=== PATIENT | female | born 1975 | race Caucasian/White ===

== ENCOUNTER 2017-03-27 18:45 | Emergency (ER) | payer MEDICAID ==
[~2017-03-27] VITALS: Ht 149.9 cm; Wt 76.8 kg
[2017-03-27] MEDS ORDERED: ONDANSETRON 2MG/ML, 2ML IVPush ONE (19:30)
[2017-03-27] MEDS ORDERED: SODIUM CHLORIDE 0.9% 1,000ML IVBOLUS ONE (19:30)
[2017-03-27] MEDS ORDERED: ONDANSETRON 2MG/ML, 2ML ONE (19:31)
[2017-03-27] MEDS ORDERED: HYDROmorphone 2 MG/ML, 1ML ONE (19:31)
[2017-03-27 19:41] LABS: BASOPHILS # (AUTO) 0.21 x10^3/uL (0-0.1); BASOPHILS % (AUTO) 2 % (0-1); EOSINOPHILS # (AUTO) 0.05 x10^3/uL (0-0.4); EOSINOPHILS % (AUTO) 0 % (1-7); LYMPHOCYTES # (AUTO) 2.53 x10^3/uL (1-3.4); LYMPHOCYTES % (AUTO) 19 % (22-44); MD NO; MEAN CORPUSCULAR HEMOGLOBIN 29.7 pg (27.0-34.8); MEAN CORPUSCULAR HGB CONC 33.2 g/dL (32.4-35.8); MEAN CORPUSCULAR VOLUME 89.5 fL (80-100); MEAN PLATELET VOLUME 8.2 fL (7.4-10.4); MONOCYTES # (AUTO) 0.62 x10^3/uL (0.2-0.8); MONOCYTES % (AUTO) 5 % (2-9); NEUTROPHILS % (AUTO) 74 % (42-75); PLATELET COUNT 386 x10^3/uL (130-400); RED BLOOD COUNT 4.96 x10^6/uL (3.82-5.3); RED CELL DISTRIBUTION WIDTH 14.2 % (9.6-15.2)
[2017-03-27] MEDS: HYDROmorphone 1 MG/ML, 1ML IVPush PRN ×2 (19:41→19:58)
[2017-03-27 19:51] LABS: ALANINE AMINOTRANSFERASE 16 U/L (12-78); ALBUMIN 3.7 g/dL (3.4-5.0); ANION GAP 12 mmol/L (5-15); CHLORIDE 113 mmol/L (98-107)
[2017-03-27 19:54] LABS: ALKALINE PHOSPHATASE 88 U/L (45-117); BILIRUBIN,TOTAL 0.5 mg/dL (0.2-1.0); TOTAL PROTEIN 8.5 g/dL (6.4-8.2)
[2017-03-27 20:16] LABS: HCG UR SG 1.016 (1.003-1.030); MICROSCOPIC AUTO
[2017-03-27 20:20] LABS: CULTURE INDICATED? YES
[2017-03-27 22:26] VITALS: BP 137/92
== END 2017-03-27 21:31 | disposition home or self-care (01) ==
LOC: ED 21:06
DX: N28.1 Cyst of kidney, acquired (principal); R19.7 Diarrhea, unspecified; R11.2 Nausea with vomiting, unspecified; Z87.442 Personal history of urinary calculi
CPT/HCPCS: 36415; 74176; 80053; 81001; 81025; 83690; 85025; 87086; 96374; 96375; 99285; J1170; J2405; J7030

== ENCOUNTER 2017-03-28 19:19 | Emergency (ER) | payer MEDICAID ==
[~2017-03-28] VITALS: Ht 149.9 cm; Wt 73.0 kg
[2017-03-28] MEDS ORDERED: SODIUM CHLORIDE FLUSH 10ML SYR IVF ONE (19:30)
[2017-03-28] MEDS ORDERED: ONDANSETRON 2MG/ML, 2ML IVPush ONE (19:30)
[2017-03-28] MEDS ORDERED: SODIUM CHLORIDE 0.9% 1,000ML IVBOLUS ONE (19:30)
[2017-03-28 19:51] LABS: MICROSCOPIC AUTO
[2017-03-28 19:53] LABS: CULTURE INDICATED? YES
[2017-03-28 20:17] LABS: BASOPHILS # (AUTO) 0.06 x10^3/uL (0-0.1); BASOPHILS % (AUTO) 1 % (0-1); EOSINOPHILS # (AUTO) 0.07 x10^3/uL (0-0.4); EOSINOPHILS % (AUTO) 1 % (1-7); LYMPHOCYTES # (AUTO) 1.98 x10^3/uL (1-3.4); LYMPHOCYTES % (AUTO) 15 % (22-44); MD NO; MEAN CORPUSCULAR HGB CONC 33.8 g/dL (32.4-35.8); MEAN CORPUSCULAR VOLUME 88.8 fL (80-100); MEAN PLATELET VOLUME 8.4 fL (7.4-10.4); MONOCYTES # (AUTO) 0.24 x10^3/uL (0.2-0.8); MONOCYTES % (AUTO) 2 % (2-9); NEUTROPHILS # (AUTO) 10.56 x10^3/uL (1.8-6.8); NEUTROPHILS % (AUTO) 82 % (42-75); PLATELET COUNT 352 x10^3/uL (130-400); RED BLOOD COUNT 4.72 x10^6/uL (3.82-5.3); RED CELL DISTRIBUTION WIDTH 14.1 % (9.6-15.2)
[2017-03-28 20:26] LABS: ALANINE AMINOTRANSFERASE 19 U/L (12-78); ALBUMIN 3.6 g/dL (3.4-5.0); ANION GAP 11 mmol/L (5-15); CALCIUM 8.5 mg/dL (8.5-10.1); CHLORIDE 110 mmol/L (98-107); CREATININE 1.71 mg/dL (0.55-1.02)
[2017-03-28 20:28] LABS: ALKALINE PHOSPHATASE 86 U/L (45-117); BILIRUBIN,TOTAL 0.5 mg/dL (0.2-1.0); TOTAL PROTEIN 7.9 g/dL (6.4-8.2)
[2017-03-28] MEDS ORDERED: ONDANSETRON 2MG/ML, 2ML ONE ×2 (22:29→23:54)
[2017-03-28] MEDS ORDERED: HYDROmorphone 2 MG/ML, 1ML ONE (23:47)
[2017-03-28] MEDS ORDERED: MAALOX/HYOSCYAMINE/LIDOCAINE 45 ML BTL ONE (23:48)
[2017-03-28 23:58] VITALS: BP 135/74
[2017-03-29] MEDS ORDERED: HYDROmorphone 2 MG/ML, 1ML IVPush PRN
[2017-03-29] MEDS ORDERED: ONDANSETRON 2MG/ML, 2ML IVPush ONE
[2017-03-29] MEDS ORDERED: SODIUM CHLORIDE 0.9% 1,000ML IVBOLUS ONE
== END 2017-03-29 00:47 | disposition home or self-care (01) ==
LOC: ED 22:58
DX: K29.01 Acute gastritis with bleeding (principal); N28.1 Cyst of kidney, acquired; Z88.5 Allergy status to narcotic agent
CPT/HCPCS: 36415; 76770; 80053; 81001; 85025; 87086; 96361; 96374; 96375; 96376; 99285; J1170; J2405; J7030

== ENCOUNTER 2017-03-30 18:21 | Observation (INO) | payer MEDICAID ==
[~2017-03-30] VITALS: Ht 149.9 cm; Wt 73.5 kg
[2017-03-30] MEDS ORDERED: ONDANSETRON 2MG/ML, 2ML ONE ×2 (18:51→19:07)
[2017-03-30] MEDS ORDERED: ONDANSETRON 2MG/ML, 2ML IVPush ONE ×2 (19:00→20:00)
[2017-03-30] MEDS ORDERED: SODIUM CHLORIDE FLUSH 10ML SYR IVF ONE (19:00)
[2017-03-30] MEDS ORDERED: SODIUM CHLORIDE 0.9% 1,000ML IVBOLUS ONE (19:00)
[2017-03-30] MEDS ORDERED: DICYCLOMINE 10 MG/ML, 2ML ONE (19:07)
[2017-03-30 19:27] LABS: ALANINE AMINOTRANSFERASE 16 U/L (12-78); ALBUMIN 3.6 g/dL (3.4-5.0); ANION GAP 11 mmol/L (5-15); CHLORIDE 111 mmol/L (98-107); CREATININE 1.94 mg/dL (0.55-1.02)
[2017-03-30] MEDS ORDERED: DICYCLOMINE 10 MG/ML, 2ML IM ONE (19:30)
[2017-03-30] MEDS ORDERED: PROMETHAZINE 25 MG/ML, 1ML IM ONE (19:30)
[2017-03-30 19:32] LABS: ALKALINE PHOSPHATASE 84 U/L (45-117); BILIRUBIN,TOTAL 0.5 mg/dL (0.2-1.0); TOTAL PROTEIN 8.3 g/dL (6.4-8.2)
[2017-03-30 19:37] LABS: BASOPHILS # (AUTO) 0.08 x10^3/uL (0-0.1); BASOPHILS % (AUTO) 1 % (0-1); EOSINOPHILS # (AUTO) 0.09 x10^3/uL (0-0.4); EOSINOPHILS % (AUTO) 1 % (1-7); LYMPHOCYTES # (AUTO) 2.23 x10^3/uL (1-3.4); LYMPHOCYTES % (AUTO) 21 % (22-44); MD NO; MEAN CORPUSCULAR HGB CONC 33.7 g/dL (32.4-35.8); MEAN CORPUSCULAR VOLUME 89.2 fL (80-100); MONOCYTES # (AUTO) 0.27 x10^3/uL (0.2-0.8); MONOCYTES % (AUTO) 3 % (2-9); NEUTROPHILS # (AUTO) 7.78 x10^3/uL (1.8-6.8); NEUTROPHILS % (AUTO) 74 % (42-75); PLATELET COUNT 357 x10^3/uL (130-400); RED BLOOD COUNT 4.68 x10^6/uL (3.82-5.3); RED CELL DISTRIBUTION WIDTH 14.2 % (9.6-15.2)
[2017-03-30] MEDS ORDERED: ZIPRASIDONE 20 MG INJ IM ONE ×2 (19:37→20:00)
[2017-03-30] MEDS ORDERED: LORazepam 2 MG/ML, 1ML ONE ×2 (20:40→21:15)
[2017-03-30] MEDS ORDERED: LORazepam 2 MG/ML, 1ML IVPush ONE ×2 (21:00→21:30)
[2017-03-30] MEDS ORDERED: KETAMINE 100 MG/ML, 5ML IV ONE (22:00)
[2017-03-30] MEDS ORDERED: KETAMINE 10 MG/ML, 20ML ONE (22:08)
[2017-03-30 22:45] LABS: MICROSCOPIC AUTO
[2017-03-30 22:46] LABS: CULTURE INDICATED? NO
[2017-03-30 22:55] LABS: AMPHETAMINE SCREEN, URINE Negative (Negative); BARBITURATE SCREEN, URINE Negative (Negative); BENZODIAZEPINE SCREEN, URINE Negative (Negative); CANNABINOID SCREEN, URINE Positive (Negative); COCAINE SCREEN, URINE Negative (Negative); METHADONE SCREEN, URINE Negative (Negative); OPIATE SCREEN, URINE Negative (Negative)
[2017-03-30 23:55] VITALS: BP 155/90
[2017-03-31] VITALS: BP 155/90
[2017-03-31] MEDS: NS + 20MEQ KCL 1,000 ML IV SCH ×2 (00:25→07:35)
[2017-03-31] MEDS: FAMOTIDINE 20 MG/2 ML IVPush SCH ×2 (00:25→07:27)
[2017-03-31] MEDS: ENOXAPARIN 30 MG/0.3 ML SQ SCH ×2 (00:31→20:37)
[2017-03-31] MEDS: TRAZODONE 50MG TABLET PO PRN ×2 (00:32→20:37)
[2017-03-31] MEDS: ACETAMINOPHEN 325 MG TABLET PO PRN ×3 (00:32→20:36)
[2017-03-31 02:34] LABS: BASOPHILS % (AUTO) 0 % (0-1); EOSINOPHILS % (AUTO) 0 % (1-7); LYMPHOCYTES # (AUTO) 0.67 x10^3/uL (1-3.4); LYMPHOCYTES % (AUTO) 6 % (22-44); MD NO; MEAN CORPUSCULAR HEMOGLOBIN 29.7 pg (27.0-34.8); MEAN CORPUSCULAR HGB CONC 33.2 g/dL (32.4-35.8); MEAN CORPUSCULAR VOLUME 89.6 fL (80-100); MEAN PLATELET VOLUME 8.6 fL (7.4-10.4); MONOCYTES # (AUTO) 0.07 x10^3/uL (0.2-0.8); MONOCYTES % (AUTO) 1 % (2-9); NEUTROPHILS # (AUTO) 10.49 x10^3/uL (1.8-6.8); NEUTROPHILS % (AUTO) 93 % (42-75); PLATELET COUNT 280 x10^3/uL (130-400); RED BLOOD COUNT 4.29 x10^6/uL (3.82-5.3); RED CELL DISTRIBUTION WIDTH 14.3 % (9.6-15.2)
[2017-03-31 02:38] LABS: ANION GAP 11 mmol/L (5-15); CALCIUM 8.5 mg/dL (8.5-10.1); CHLORIDE 114 mmol/L (98-107); CREATININE 1.64 mg/dL (0.55-1.02)
[2017-03-31] MEDS: DIPHENHYDRAMINE 50 MG/ML, 1ML IVPush PRN ×3 (05:56→20:36)
[2017-03-31] MEDS: METOCLOPRAMIDE 5 MG/ML, 2ML IVPush PRN ×2 (05:56)
[2017-03-31 07:02] VITALS: BP 141/92
[2017-03-31] MEDS ORDERED: HYDROmorphone 2 MG/ML, 1ML ONE (10:18)
[2017-03-31] MEDS ORDERED: HYDROmorphone 1 MG/ML, 1ML IV ONE (10:30)
[2017-03-31] MEDS: METOCLOPRAMIDE 5 MG/ML, 2ML IVPush SCH ×2 (13:02→16:22)
[2017-03-31 13:41] VITALS: BP 113/75
[2017-03-31 20:01] VITALS: BP 118/78
[2017-03-31] MEDS: METOCLOPRAMIDE 10MG TABLET PO PRN (20:36)
[2017-04-01 01:17] VITALS: BP 162/103
[2017-04-01 01:25] VITALS: BP 140/105
[2017-04-01] MEDS ORDERED: PYRIDOXINE 50MG TABLET ONE (02:08)
[2017-04-01] MEDS ORDERED: DOXYLAMINE 25MG TABLET PO ONE ×2 (02:20→21:00)
[2017-04-01] MEDS ORDERED: PYRIDOXINE 25MG TABLET PO SCH (02:20)
[2017-04-01] MEDS: DIPHENHYDRAMINE 50 MG/ML, 1ML IVPush PRN ×2 (02:32→08:20)
[2017-04-01] MEDS: METOCLOPRAMIDE 10MG TABLET PO PRN (02:33)
[2017-04-01] MEDS: ACETAMINOPHEN 325 MG TABLET PO PRN (03:40)
[2017-04-01 05:51] LABS: CHLORIDE 113 mmol/L (98-107)
[2017-04-01 06:14] LABS: BASOPHILS # (AUTO) 0.01 x10^3/uL (0-0.1); BASOPHILS % (AUTO) 0 % (0-1); EOSINOPHILS % (AUTO) 0 % (1-7); LYMPHOCYTES # (AUTO) 0.94 x10^3/uL (1-3.4); LYMPHOCYTES % (AUTO) 8 % (22-44); MD NO; MEAN CORPUSCULAR HEMOGLOBIN 30.2 pg (27.0-34.8); MEAN CORPUSCULAR VOLUME 88.7 fL (80-100); MEAN PLATELET VOLUME 8.9 fL (7.4-10.4); MONOCYTES # (AUTO) 0.32 x10^3/uL (0.2-0.8); MONOCYTES % (AUTO) 3 % (2-9); NEUTROPHILS # (AUTO) 11.18 x10^3/uL (1.8-6.8); NEUTROPHILS % (AUTO) 90 % (42-75); PLATELET COUNT 269 x10^3/uL (130-400); RED BLOOD COUNT 4.25 x10^6/uL (3.82-5.3); RED CELL DISTRIBUTION WIDTH 14.5 % (9.6-15.2)
[2017-04-01 06:23] LABS: ANION GAP 10 mmol/L (5-15); THYROID STIMULATING HORMONE 0.719 mIU/L (0.358-3.740)
[2017-04-01 07:55] VITALS: BP 147/89
[2017-04-01] MEDS ORDERED: PROMETHAZINE 25 MG/ML, 1ML IM ONE ×2 (08:00)
[2017-04-01] MEDS ORDERED: PROMETHAZINE 25 MG/ML, 1ML ONE (08:09)
[2017-04-01] MEDS ORDERED: FAMOTIDINE 20 MG/2 ML IVPush SCH (09:00)
[2017-04-01] MEDS ORDERED: PYRIDOXINE 25MG TABLET PO ONE (09:00)
[2017-04-01] MEDS ORDERED: ONDA4TAB10 PO (09:19)
[2017-04-01] MEDS ORDERED: MORPHINE SULFATE 4 MG/ML, 1ML ONE (11:56)
[2017-04-01] MEDS ORDERED: SODIUM CHLORIDE 0.9% 1,000ML IVBOLUS STA (11:59)
[2017-04-01] MEDS ORDERED: MORPHINE SULFATE 4 MG/ML, 1ML IVPush ONE (12:00)
== END 2017-04-01 12:22 | disposition home or self-care (01) ==
LOC: ED 20:41 → EDIP 21:00 → INTOOBSV 21:00 → 3NE 22:48 → 4EST 03-31 10:48
PROVIDERS: ADMIT Family Medicine; ATTEND Family Medicine
DX: A08.4 Viral intestinal infection, unspecified (principal); F12.90 Cannabis use, unspecified, uncomplicated; N18.3 Chronic kidney disease, stage 3 (moderate); N28.1 Cyst of kidney, acquired; E87.2 Acidosis; Z87.442 Personal history of urinary calculi
CPT/HCPCS: 36415; 74021; 80048; 80053; 80307; 81001; 83605; 83690; 84443; 84703; 85025; 93306; 96361; 96372; 96374; 96375; 96376; 99285; G0378; J0500; J1170; J1200; J1650; J2060; J2405; J2550; J2765; J3480; J3486; J7030; S0028

== ENCOUNTER 2018-05-21 00:49 | Emergency (ER) | payer MEDICAID ==
[~2018-05-21] VITALS: Ht 149.9 cm; Wt 58.0 kg
[~2018-05-21 00:49] MED LIST: ONDA4TAB10 PO
--- NOTE | 2018-05-21 00:57 | NUR ---
REPORT FROM JI RODRIGUEZ TO ASSUME CARE OF PT. PT. PRESENTS TO ED FOR BLOOD DRAW FROM HALFWAY.
--- NOTE | 2018-05-21 01:02 | NUR ---
REPORT TO JI LUIS.
--- NOTE | 2018-05-21 01:04 | NUR ---
NEED CERTIFIED STRIPER DRAW BLOOD AWARE
[2018-05-21 01:12] VITALS: BP 158/92
--- NOTE | 2018-05-21 01:25 | NUR ---
lab is in rm for drawing blood
--- NOTE | 2018-05-21 01:31 | NUR ---
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
--- NOTE | 2018-05-21 01:36 | NUR ---
Clive greene in ED - 05/21/18 at 0137 by GISELA raphael arguello: report of pt from JI Manzanares and assuming care of pt at this time.
--- NOTE | 2018-05-21 01:37 | NUR ---
raphael rn: report of pt from JI Manzanares and assuming care of pt at this time.
== END 2018-05-21 01:46 | disposition home or self-care (01) ==
LOC: ED 01:42
DX: Z02.89 Encounter for other administrative examinations (principal)
CPT/HCPCS: 99283